=== PATIENT | female | born 1990 | race African-American/Black ===

== ENCOUNTER 2017-02-20 16:54 | Emergency (ER) | payer MEDICAID, OTHER ==
[~2017-02-20] VITALS: Ht 162.6 cm; Wt 72.0 kg
[~2017-02-20 16:54] MED LIST: PREN1CAP20 PO
[2017-02-20 16:56] VITALS: BP 125/67; PULSE 97; RESP 16; TEMP 101; O2SAT 98
[2017-02-20] MEDS ORDERED: ACETAMINOPHEN 325 MG TAB PO ONE (17:45)
--- NOTE | 2017-02-20 18:03 | PD ---
HPI Chief Complaint: Cold / Flu Symptoms Time Seen by Provider: 17:59 Travel History International Travel<30 days: No Contact w/Intl Traveler<30days: No Traveled to known affect area: No History of Present Illness HPI 26-year-old female that presents to the ED for evaluation of fever, body aches, lower abdominal cramping with vaginal discharge. Per patient she was seen about a week ago by an urgent care and she was diagnosed with bacterial vaginosis. Per patient although did was check her urine and diagnosed her with this and she's been taking the Flagyl since. She denies taking anything else. Per patient she did not have any of the fever for body aches until today. She states that she has a slight headache. No neck pain. She does tell me that she has a daughter who is one years old and she sick with cold-like symptoms at home. She denies getting the flu shot this year. She denies any cough or runny nose. No sore throat. Per patient abdominal pain is cramping in nature and is only in the lower abdomen. She denies . Per patient initially she thought she might have a yeast infection and she is OTC meds but he did not improve so that is what she went to see the urgent care. She denies any STD exposure. No allergies to medication. No other medical problems at this time. She states that the pain is 4 out of 10. PFSH Past Medical History Immunizations Current: No ?: Not LMP: JANUARY 2017 : 1 Para: 0 Miscarriage: 0 : 0 Social History Alcohol Use: No Tobacco Use: No Substance Use: No Allergies-Medications (Allergen,Severity, Reaction): Coded Allergies: No Known Allergies (Verified , 05/16/15) Reported Meds & Prescriptions Reported Meds & Active Scripts Active Doxycycline Hyclate DR (Doxycycline Hyclate) 100 Mg Tab 100 Mg PO BID 10 Days Review of Systems Except as stated in HPI: all other systems reviewed are Neg Physical Exam Narrative GENERAL: Well-nourished, well-developed patient in no apparent distress. SKIN: Warm and dry. HEAD: Atraumatic. Normocephalic. EYES: Pupils equal and round reactive to light and accommodation. No scleral icterus. No injection or drainage. ENT: No nasal bleeding or discharge. Mucous membranes pink and moist. TMs are clear with no sign of infection or perforation. No mastoid tenderness. Ear canals are intact bilaterally. No lymphadenopathy. Nostril mucosa is red and moist with clear mucus noted. No sinus tenderness to palpation noted. Tonsils are not enlarged or swollen. No ulvua Deviation. Tongue is midline. NECK: Trachea midline. No JVD. No meningeal signs noted CARDIOVASCULAR: Regular rate and rhythm. RESPIRATORY: No accessory muscle use. Clear to auscultation. Breath sounds equal bilaterally. GASTROINTESTINAL: Abdomen soft, non-tender, nondistended. Hepatic and splenic margins not palpable. Pelvic exam: Done with female nurse present. MUSCULOSKELETAL: Extremities without clubbing, cyanosis, or edema. No obvious deformities. NEUROLOGICAL: Awake and alert. No obvious cranial nerve deficits. Motor grossly within normal limits. Five out of 5 muscle strength in the arms and legs. Normal speech. PSYCHIATRIC: Appropriate mood and affect; insight and judgment normal. Data Data Last Documented VS Vital Signs Date Time Temp Pulse Resp B/P Pulse Ox O2 Delivery O2 Flow Rate FiO2 02/20/17 16:56 101.0 97 16 125/67 98 Orders Complete Blood Count With Diff (02/20/17 17:38) Basic Metabolic Panel (Bmp) (02/20/17 17:38) Blood Culture (02/20/17 17:38) Urinalysis - C+S If Indicated (02/20/17 17:38) Wet Prep Profile (02/20/17 17:38) Gc And Chlamydia Pcr (02/20/17 17:38) Influenzae A/B Antigen (02/20/17 17:38) Chest, Single Ap (02/20/17 17:38) Iv Access Insert/Monitor (02/20/17 17:38) Ed Urine Pregnancytest Poc (02/20/17 17:38) Acetaminophen (Tylenol) (02/20/17 17:45) Urine Culture (02/20/17 17:55) Ceftriaxone Inj (Rocephin Inj) (02/20/17 18:45) Labs Laboratory Tests Test 02/20/17 02/20/17 17:55 18:13 White Blood Count 7.6 TH/MM3 Red Blood Count 4.79 MIL/MM3 Hemoglobin 14.6 GM/DL Hematocrit 43.3 % Mean Corpuscular Volume 90.3 FL Mean Corpuscular Hemoglobin 30.4 PG Mean Corpuscular Hemoglobin 33.7 % Concent Red Cell Distribution Width 13.0 % Platelet Count 302 TH/MM3 Mean Platelet Volume 7.1 FL Neutrophils (%) (Auto) 91.4 % Lymphocytes (%) (Auto) 5.8 % Monocytes (%) (Auto) 2.5 % Eosinophils (%) (Auto) 0.2 % Basophils (%) (Auto) 0.1 % Neutrophils # (Auto) 7.0 TH/MM3 Lymphocytes # (Auto) 0.4 TH/MM3 Monocytes # (Auto) 0.2 TH/MM3 Eosinophils # (Auto) 0.0 TH/MM3 Basophils # (Auto) 0.0 TH/MM3 CBC Comment DIFF FINAL Differential Comment Urine Color YELLOW Urine Turbidity HAZY Urine pH 6.5 Urine Specific [place] 1.030 Urine Protein TRACE mg/dL Urine Glucose (UA) NEG mg/dL Urine Ketones NEG mg/dL Urine Occult Blood NEG Urine Nitrite NEG Urine Bilirubin NEG Urine Urobilinogen 2.0 MG/DL Urine Leukocyte Esterase LARGE Urine WBC 18 /hpf Urine Squamous Epithelial 6 /hpf Cells Urine Mucus FEW /lpf Microscopic Urinalysis Comment CULTURE INDICATED Sodium Level 137 MEQ/L Potassium Level 3.6 MEQ/L Chloride Level 102 MEQ/L Carbon Dioxide Level 27.2 MEQ/L Anion Gap 8 MEQ/L Blood Urea Nitrogen 10 MG/DL Creatinine 0.85 MG/DL Estimat Glomerular Filtration 99 ML/MIN Rate Random Glucose 86 MG/DL Calcium Level 8.9 MG/DL Clue Cells (Wet Prep) NONE SEEN Vaginal Trichomonas (Wet Prep) NONE SEEN Vaginal Yeast (Wet Prep) NONE SEEN MDM Medical Decision Making Medical Screen Exam Complete: Yes Emergency Medical Condition: Yes Medical Record Reviewed: Yes Interpretation(s) CBC & BMP Diagram 02/20/17 17:55 UA shows UTI wet prep negative CXR negative influenza negative Differential Diagnosis PID versus STD versus UTI versus influenza versus abdominal pain versus bacterial vaginosis versus vaginitis Narrative Course 26-year-old female that presents to the ED for evaluation of fever, bodyaches and vaginal discharge. Patient was properly examined and was found to have signs and symptoms of concurrent etiology. Possible viral versus vaginal. Condition at this time is for labs and imaging. Pelvic recommended. Patient agrees to this. Labs and imaging showed possible UTI, was unremarkable. Wet prep was negative. Patient was told results. This time a recommend treating for PID. Case discussed with my attending Dr. Dawn who recommends treating the same. Patient was given a shot here of ceftriaxone and a prescription for doxycycline. Patient was told to refrain from sex for at least 2 weeks and I was use protection. Close follow with PCP. See ED for any worsening symptoms. Patient was told to what to look for in case of emergency to come back. Diagnosis Primary Impression: PID (acute pelvic inflammatory disease) Additional Impression: Vaginal discharge Patient Instructions: General Instructions Additional Instructions: Motrin or Tylenol for pain and fever. Drink plenty of fluids. See ED for any worsening symptoms. Take medication as prescribed. Med/Other Pt SpecificInfo: Prescription(s) given Scripts Doxycycline Hyclate DR 100 Mg [id number] Mg PO BID 10 Days Ref 0 Prov:Michel Dawn MD 02/20/17 Disposition: 01 DISCHARGE HOME Condition: Stable Sami Sosa February 20, 2017 18:03
[2017-02-20 18:18] LABS: BASOPHIL % 0.1 % (0.0-2.0); EOSINOPHIL % 0.2 % (0.0-4.0); HEMATOCRIT 43.3 % (35.0-46.0); HEMO FLAGS DIFF FINAL; LYMPH % 5.8 % (9.0-44.0); LYMPHOCYTE # 0.4 TH/MM3 (1.0-4.8); MEAN CELL VOLUME 90.3 FL (80.0-100.0); MEAN CORPUSCULAR HEMOGLOBIN 30.4 PG (27.0-34.0); MEAN CORPUSCULAR HGB CONC 33.7 % (32.0-36.0); MONO % 2.5 % (0.0-8.0); NEUT % 91.4 % (16.0-70.0); PLATELET COUNT 302 TH/MM3 (150-450); RED BLOOD COUNT 4.79 MIL/MM3 (4.00-5.30); WHITE BLOOD COUNT 7.6 TH/MM3 (4.0-11.0)
--- NOTE | 2017-02-20 18:23 | RADRPT ---
EXAM DATE/TIME: 02/20/2017 18:08 [place] COMPARISON: No previous studies available for comparison. INDICATIONS : Fever, mild chest tightness MEDICAL HISTORY : None. SURGICAL HISTORY : None. denies ENCOUNTER: Initial ACUITY: 2 days PAIN SCORE: 4/10 LOCATION: Bilateral chest FINDINGS: A single view of the chest demonstrates the lungs to be symmetrically aerated without evidence of mas s, infiltrate or effusion. The cardiomediastinal contours are unremarkable. Osseous structures are intact. CONCLUSION: No evidence of acute cardiopulmonary disease. Noe Castro MD on February 20, 2017 at 18:21 Board Certified Radiologist. This report was verified electronically.
[2017-02-20 18:25] LABS: BLOOD, URINE NEG (NEG); COMMENT (UR) CULTURE INDICATED; CULTURE IF INDICATED CULTURE INDICATED; GLUCOSE,URINE NEG (NEG); KETONE, URINE NEG (NEG); MUCUS URINE FEW /lpf (OCC); NITRITE,URINE NEG (NEG); PH, URINE 6.5 (5.0-8.5); SQUAMOUS EPITHELIAL CELL URINE 6 /hpf (0-5); URINE COLOR YELLOW (YELLW/STRAW)
[2017-02-20 18:27] LABS: BICARBONATE 27.2 MEQ/L (21.0-32.0); POTASSIUM 3.6 MEQ/L (3.5-5.1)
[2017-02-20] MEDS ORDERED: cefTRIAXone INJ 250 MG in SODIUM CHLORIDE 0.9% INJ 25 ML IV ONE (18:45)
[2017-02-20] MEDS ORDERED: DOXY1TAB6 PO (18:52)
[2017-02-20] MEDS ORDERED: DOXYCYCLINE HYCLATE 100 MG TAB PO ONE (19:00)
[2017-02-20 20:11] VITALS: BP 122/66; PULSE 87; RESP 18; O2SAT 97
[2017-02-20 20:25] LABS: CHLAMYDIA PCR NOT DETECTED (NOT DETECT); NEISSERIA PCR NOT DETECTED (NOT DETECT)
== END 2017-02-20 20:18 | disposition home or self-care (01) ==
LOC: NEPE 16:54
DX: N73.0 Acute parametritis and pelvic cellulitis (principal)
CPT/HCPCS: 71010; 80048; 81001; 84703; 85025; 87040; 87086; 87210; 87491; 87591; 87804; 96374; 99284; J0696

== ENCOUNTER 2017-03-12 16:13 | Emergency (ER) | payer MEDICAID ==
[~2017-03-12] VITALS: Ht 162.6 cm; Wt 70.0 kg
[~2017-03-12 16:13] MED LIST changes: +DOXY1TAB6 PO; -PREN1CAP20 PO
[2017-03-12 16:15] VITALS: BP 115/79; PULSE 70; RESP 20; TEMP 97.9; O2SAT 100
--- NOTE | 2017-03-12 16:53 | PD ---
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 Patient states she treated herself with [id number] Monistat but was not getting any better. Patient states she's been seen here and at [facility] and has been told that everything came back negative. She states she has even pulled her records to confirm this. Patient states she has gone back and had intercourse with the same partner and nobody knew. She does not utilize condoms prophylaxis. Denies any significant abdominal pain. She states is concerned about the worsening discharge. She has had no fever or chills. No nausea or vomiting. No urinary symptoms. She has no other symptoms to report. PFSH Past Medical History Medical History: Denies Significant Hx Diminished Hearing: No Immunizations Current: No Tetanus Vaccination: Unknown Influenza Vaccination: Yes ?: Not LMP: 03/10/2017 : 2 Para: 1 Miscarriage: 0 : 0 Past Surgical History Section: Yes (x 1 ) Social History Alcohol Use: No Tobacco Use: No Substance Use: No Allergies-Medications (Allergen,Severity, Reaction): Coded Allergies: No Known Allergies (Verified , 03/12/17) Reported Meds & Prescriptions Reported Meds & Active Scripts Active Keflex (Cephalexin) 250 Mg Cap 500 Mg PO Q6H 5 Days Review of Systems Except as stated in HPI: all other systems reviewed are Neg Physical Exam Narrative GENERAL: Well-nourished female patient, in no acute distress SKIN: Focused skin assessment warm/dry. HEAD: Atraumatic. Normocephalic. EYES: Pupils equal and round. No scleral icterus. No injection or drainage. ENT: No nasal bleeding or discharge. Mucous membranes pink and moist. NECK: Trachea midline. No JVD. CARDIOVASCULAR: Regular rate and rhythm. No murmur appreciated. RESPIRATORY: No accessory muscle use. Clear to auscultation. Breath sounds equal bilaterally. GASTROINTESTINAL: Abdomen soft, non-tender, nondistended. Hepatic and splenic margins not palpable. GENITOURINARY: Normal external genitalia without lesions or erythema. Vaginal vault without blood. There is a milky white drainage within the vaginal vault. Cervical os was closed without drainage. No cervical motion tenderness. Uterus nontender and nonenlarged. Bilateral adnexa nontender without masses. MUSCULOSKELETAL: No obvious deformities. No clubbing. No cyanosis. No edema. NEUROLOGICAL: Awake and alert. No obvious cranial nerve deficits. Motor grossly within normal limits. Normal speech. PSYCHIATRIC: Appropriate mood and affect; insight and judgment normal. Data Data Last Documented VS Vital Signs Date Time Temp Pulse Resp B/P Pulse Ox O2 Delivery O2 Flow Rate FiO2 03/12/17 16:15 97.9 70 20 115/79 100 Room Air Orders Urinalysis - C+S If Indicated (03/12/17 16:48) Gc And Chlamydia Pcr (03/12/17 16:48) Wet Prep Profile (03/12/17 16:48) Fluid Culture And Gram Stain (03/12/17 17:43) Urine Culture (03/12/17 17:20) Metronidazole (Flagyl) (03/12/17 18:30) Labs Laboratory Tests Test 03/12/17 03/12/17 17:20 17:43 Urine Color YELLOW Urine Turbidity HAZY Urine pH 8.0 Urine Specific [place] 1.015 Urine Protein NEG mg/dL Urine Glucose (UA) NEG mg/dL Urine Ketones NEG mg/dL Urine Occult Blood NEG Urine Nitrite NEG Urine Bilirubin NEG Urine Urobilinogen LESS THAN 2.0 MG/DL Urine Leukocyte Esterase LARGE Urine RBC 6 /hpf Urine WBC 30 /hpf Urine Squamous Epithelial 5 /hpf Cells Urine Bacteria RARE /hpf Urine Hyaline Casts 1 /lpf Urine Mucus FEW /lpf Microscopic Urinalysis Comment CULTURE INDICATED Clue Cells (Wet Prep) NONE SEEN Vaginal Trichomonas (Wet Prep) PRESENT Vaginal Yeast (Wet Prep) NONE SEEN Chlamydia trachomatis DNA NOT DETECTED (PCR) Neisseria gonorrhoeae DNA NOT DETECTED (PCR) [facility] Medical Decision Making Medical Screen Exam Complete: Yes Emergency Medical Condition: Yes Medical Record Reviewed: Yes Differential Diagnosis STDs versus candidiasis versus UTI Narrative Course 26-year-old female presents to emergency department for evaluation. Patient appears without distress. Patient does have a watery white discharge within the vaginal vault. No CMT. No abdominal pain. Vital signs are stable. Urinalysis is hazy with large leukocyte esterase, 6 rbc, 30 to be DC, rare bacteria, few mucus. Cultures indicated. Wet prep is positive for trichomonas. GC PCR is negative for gonorrhea and chlamydia. Patient is given Flagyl here in the emergency department. She will be discharged home on oral antibiotics for her UTI. He agrees to return immediately with any acute worsening of symptoms. Diagnosis Primary Impression: Infection due to trichomonas vaginalis Additional Impression: UTI (urinary tract infection) Qualified Code: N39.0 - Urinary tract infection without hematuria, site unspecified Referrals: [facility] Primary Care Physician Patient Instructions: General Instructions, Trichomoniasis (ED) Additional Instructions: Follow-up with a jewel grinder Seek primary care evaluation Safe sex utilizing condom prophylaxis is strongly recommended Return immediately to the emergency department with any acute worsening of symptoms Med/Other Pt SpecificInfo: Prescription(s) given Scripts Cephalexin (Keflex)250 Mg [id number] Mg PO Q6H 5 Days Ref 0 Prov:Connie Davidson 03/12/17 Disposition: 01 DISCHARGE HOME Condition: Stable Connie Davidson March 12, 2017 16:53
[2017-03-12 17:42] LABS: BACTERIA, URINE RARE /hpf; BLOOD, URINE NEG (NEG); COMMENT (UR) CULTURE INDICATED; CULTURE IF INDICATED CULTURE INDICATED; GLUCOSE,URINE NEG (NEG); HYALINE CAST, URINE 1 /lpf (RARE); KETONE, URINE NEG (NEG); MUCUS URINE FEW /lpf (OCC); NITRITE,URINE NEG (NEG); SQUAMOUS EPITHELIAL CELL URINE 5 /hpf (0-5); URINE COLOR YELLOW (YELLW/STRAW)
[2017-03-12] MEDS ORDERED: metroNIDAZOLE 500 MG TAB PO ONE (18:30)
[2017-03-12] MEDS ORDERED: CEPH-459 PO (18:46)
[2017-03-12 20:00] LABS: CHLAMYDIA PCR NOT DETECTED (NOT DETECT); NEISSERIA PCR NOT DETECTED (NOT DETECT)
== END 2017-03-12 19:34 | disposition home or self-care (01) ==
LOC: NEPD 16:13
DX: A59.01 Trichomonal vulvovaginitis (principal); N39.0 Urinary tract infection, site not specified; B95.1 Streptococcus, group B, as the cause of diseases classified elsewhere; N73.9 Female pelvic inflammatory disease, unspecified
CPT/HCPCS: 81001; 86403; 87070; 87086; 87205; 87210; 87491; 87591; 99283

== ENCOUNTER 2017-03-27 20:27 | Emergency (ER) | payer MEDICAID ==
[~2017-03-27 20:27] MED LIST changes: +CEPH-459 PO; -DOXY1TAB6 PO
[2017-03-27 20:30] VITALS: BP 126/95; PULSE 88; RESP 16; TEMP 98.7; O2SAT 100
--- NOTE | 2017-03-27 21:16 | PD ---
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 Patient denies any odor, she states the discharge is thick, milky white to yellow. She denies any fevers, nausea, vomiting, abdominal pain. She reports being in the emergency department a few weeks ago with the same symptoms, diagnosed with Trichomonas, urinary tract infection, she completed the course of antibiotics. She states that her sexual partner told her he was treated but she is uncertain if this actually happened. [facility] Past Medical History Medical History: Denies Significant Hx Diminished Hearing: No Immunizations Current: No ?: Not LMP: 03/08/17 : 2 Para: 1 Miscarriage: 0 : 0 Past Surgical History Surgical History: No Previous Surgery Section: Yes (x 1 ) Social History Alcohol Use: No Tobacco Use: No Substance Use: No Allergies-Medications (Allergen,Severity, Reaction): Coded Allergies: No Known Allergies (Verified , 03/27/17) Reported Meds & Prescriptions Reported Meds & Active Scripts Active Zofran Odt (Ondansetron Odt) 4 Mg Tab 4 Mg SL Q6HR PRN Metronidazole 500 Mg Tab 500 Mg PO BID Doxycycline Hyclate 100 Mg Cap 100 Mg PO BID Review of Systems Except as stated in HPI: all other systems reviewed are Neg General / Constitutional: No: Fever, Chills HENT: No: Headaches Cardiovascular: No: Chest Pain or Discomfort Respiratory: No: Shortness of Breath Gastrointestinal: No: Nausea, Vomiting, Abdominal Pain Genitourinary: Positive: Pelvic Pain, Discharge, No: Dysuria, Vaginal Bleeding Physical Exam Narrative GENERAL: Well-nourished, well-developed patient. SKIN: Focused skin assessment warm/dry. HEAD: Normocephalic. EYES: No scleral icterus. No injection or drainage. NECK: Supple, trachea midline. No JVD or lymphadenopathy. CARDIOVASCULAR: Regular rate and rhythm without murmurs, gallops, or rubs. RESPIRATORY: Breath sounds equal bilaterally. No accessory muscle use. GASTROINTESTINAL: Abdomen soft, non-tender, nondistended. MUSCULOSKELETAL: No cyanosis, or edema. BACK: Nontender without obvious deformity. No CVA tenderness. GENITOURINARY: Normal external genitalia without lesions or erythema. Vaginal vault without blood, thick white/yellow drainage Cervical os was closed with white/yellow drainage, as appears erythematous and friable. Positive cervical motion tenderness. Uterus nontender and nonenlarged. Bilateral adnexa nontender without masses. Data Data Last Documented VS Vital Signs Date Time Temp Pulse Resp B/P Pulse Ox O2 Delivery O2 Flow Rate FiO2 03/27/17 20:30 98.7 88 16 126/95 100 Room Air Orders Wet Prep Profile (03/27/17 21:05) Urinalysis - C+S If Indicated (03/27/17 21:05) Hiv Antibody Screen (03/27/17 21:05) Hsv 1,2 Abs Igm (03/27/17 21:05) Doxycycline (Vibratab) (03/27/17 22:15) Metronidazole (Flagyl) (03/27/17 22:15) Ceftriaxone Inj (Rocephin Inj) (03/27/17 22:15) Lidocaine 1% Inj (50 Ml) (Xylocaine 1% I (03/27/17 22:15) Azithromycin (Zithromax) (03/27/17 22:15) Gc And Chlamydia Pcr (03/27/17 22:25) Labs Laboratory Tests Test 03/27/17 03/27/17 21:26 22:00 Urine Color YELLOW Urine Turbidity CLEAR Urine pH 6.5 Urine Specific [place] 1.026 Urine Protein TRACE mg/dL Urine Glucose (UA) NEG mg/dL Urine Ketones NEG mg/dL Urine Occult Blood NEG Urine Nitrite NEG Urine Bilirubin NEG Urine Urobilinogen LESS THAN 2.0 MG/DL Urine Leukocyte Esterase NEG Urine WBC LESS THAN 1 /hpf Urine Squamous Epithelial 5 /hpf Cells Urine Mucus FEW /lpf Microscopic Urinalysis Comment CULT NOT INDICATED Clue Cells (Wet Prep) NONE SEEN Vaginal Trichomonas (Wet Prep) NONE SEEN Vaginal Yeast (Wet Prep) NONE SEEN MDM Medical Decision Making Medical Screen Exam Complete: Yes Emergency Medical Condition: Yes Interpretation(s) Laboratory Tests Test 03/27/17 03/27/17 21:26 22:00 Urine Color YELLOW Urine Turbidity CLEAR Urine pH 6.5 Urine Specific [place] 1.026 Urine Protein TRACE mg/dL Urine Glucose (UA) NEG mg/dL Urine Ketones NEG mg/dL Urine Occult Blood NEG Urine Nitrite NEG Urine Bilirubin NEG Urine Urobilinogen LESS THAN 2.0 MG/DL Urine Leukocyte Esterase NEG Urine WBC LESS THAN 1 /hpf Urine Squamous Epithelial 5 /hpf Cells Urine Mucus FEW /lpf Microscopic Urinalysis Comment CULT NOT INDICATED Clue Cells (Wet Prep) NONE SEEN Vaginal Trichomonas (Wet Prep) NONE SEEN Vaginal Yeast (Wet Prep) NONE SEEN Vital Signs Date Time Temp Pulse Resp B/P Pulse Ox O2 Delivery O2 Flow Rate FiO2 03/27/17 20:30 98.7 88 16 126/95 100 Room Air Differential Diagnosis STD versus UTI versus leukorrhea versus PID versus other Narrative Course Patient's 26-year-old female presenting to the emergency room for evaluation of vaginal discharge and pelvic pain. She was seen and evaluated on March 12, 2017 at that time she was diagnosed with urinary tract infection and Trichomonas. Patient was treated with metronidazole in the emergency department and given a prescription for antibiotics to treat the urinary tract infection. Believed her sexual partner was treated, he told her he had been but she has improved. Her symptoms returned and she presented today for reevaluation. At this time patient will be treated with metronidazole and doxycycline for 14 days, she will be given dose of Rocephin and azithromycin in the emergency department based on physical examination findings. Patient had HIV and herpes serology drawn today. Wet prep was negative. She was advised that she would be notified regarding test results. She was advised to contact medical records if she did not hear from the emergency department within a week. She was encouraged to maintain compliance with antibiotic therapy, she was advised to avoid sexual contact with her partner until he is treated. Patient verbalized understanding of instructions. Patient is stable for discharge. Diagnosis Primary Impression: PID (acute pelvic inflammatory disease) Referrals: [facility]. Patient Instructions: General Instructions, Pelvic Inflammatory Disease (ED) Additional Instructions: Follow-up with a bag maker The full course of antibiotics as prescribed Do not drink alcohol while taking metronidazole Return to emergency department for any new or worsening symptoms Med/Other Pt SpecificInfo: Prescription(s) given Scripts Ondansetron Odt (Zofran Odt)4 Mg Tab4 Mg SL Q6HR PRN (Nausea/Vomiting) #30 TAB Ref 0 Prov:Jackie Kiran 03/27/17 Metronidazole 500 Mg [id number] Mg PO BID #28 TAB Ref 0 Prov:Jackie Kiran 03/27/17 Doxycycline Hyclate 100 Mg [id number] Mg PO BID #28 CAP Ref 0 Prov:Jackie Kiran 03/27/17 Disposition: 01 DISCHARGE HOME Condition: Stable Jackie Kiran Mar 27, 2017 21:16
[2017-03-27 21:49] LABS: BLOOD, URINE NEG (NEG); COMMENT (UR) CULT NOT INDICATED; CULTURE IF INDICATED CULT NOT INDICATED; GLUCOSE,URINE NEG (NEG); KETONE, URINE NEG (NEG); MUCUS URINE FEW /lpf (OCC); NITRITE,URINE NEG (NEG); PH, URINE 6.5 (5.0-8.5); SQUAMOUS EPITHELIAL CELL URINE 5 /hpf (0-5); URINE COLOR YELLOW (YELLW/STRAW)
[2017-03-27] MEDS ORDERED: AZITHROMYCIN 250 MG TAB PO ONE (22:15)
[2017-03-27] MEDS ORDERED: cefTRIAXone 250 MG VIAL IM ONE (22:15)
[2017-03-27] MEDS ORDERED: LIDOCAINE HCL 1% 50 ML VIAL IM ONE (22:15)
[2017-03-27] MEDS ORDERED: metroNIDAZOLE 500 MG TAB PO ONE (22:15)
[2017-03-27] MEDS ORDERED: DOXYCYCLINE HYCLATE 100 MG TAB PO ONE (22:15)
[2017-03-27] MEDS ORDERED: METR500T10 PO (22:43)
[2017-03-27] MEDS ORDERED: ZOFR4TAB3 SL (22:43)
[2017-03-27] MEDS ORDERED: DOXY100C PO (22:43)
[2017-03-28 04:42] LABS: CHLAMYDIA PCR NOT DETECTED (NOT DETECT); NEISSERIA PCR NOT DETECTED (NOT DETECT)
[2017-03-30 21:38] LABS: HSV IGM 1 TITER ND TITER; HSV IGM II TITER ND TITER
[2017-04-02 23:51] LABS: HSV2 IGM IFA NEGATIVE (())
== END 2017-03-27 23:40 | disposition home or self-care (01) ==
LOC: NEPD 20:27
DX: N73.0 Acute parametritis and pelvic cellulitis (principal)
CPT/HCPCS: 81001; 86695; 86696; 86703; 87210; 87491; 87591; 96372; 99284; J0696

== ENCOUNTER 2017-05-09 15:19 | Emergency (ER) | payer MEDICAID ==
[~2017-05-09] VITALS: Ht 162.6 cm; Wt 74.0 kg
[~2017-05-09 15:19] MED LIST changes: -CEPH-459 PO; +DOXY100C PO; +METR500T10 PO; +ZOFR4TAB3 SL
[2017-05-09 15:22] VITALS: BP 118/70; PULSE 69; RESP 17; TEMP 97.6; O2SAT 100
--- NOTE | 2017-05-09 15:27 | PD ---
HPI . suprapubic pain near c section incision Chief Complaint: Abdominal Pain Time Seen by Provider: 15:27 Travel History International Travel<30 days: No Contact w/Intl Traveler<30days: No Traveled to known affect area: No History of Present Illness HPI 26-year-old female with no significant past medical history here with complaints of suprapubic pain near her incision. Patients that she's been experiencing this pain for quite some time intermittently. She states that she thought it was related to her menstrual cycle, but has persisted despite her cycle ending. She says the pain is localized to where her incision scar is from her . It's very sharp and comes intermittently. She admits to increased urinary frequency, but denies any dysuria. On March 27, 2017 she was seen here in the emergency department and had a workup for PID, which was negative. She tells me since then she has seen both her primary care provider and her oil developer. They have not found anything grossly abnormal with her. She did tell me that occasionally she has some nausea, however today that is not present. She denies any vomiting, diarrhea or constipation. PFSH Past Medical History Diminished Hearing: No Immunizations Current: No ?: Not LMP: 05/06/17 : 2 Para: 1 Miscarriage: 0 : 0 Past Surgical History Section: Yes (x 1 ) Social History Alcohol Use: No Tobacco Use: No Substance Use: No Allergies-Medications (Allergen,Severity, Reaction): Coded Allergies: No Known Allergies (Verified , 03/27/17) Reported Meds & Prescriptions Reported Meds & Active Scripts Active No Active Prescriptions or Reported Medications Review of Systems General / Constitutional: No: Fever Eyes: No: Visual changes HENT: No: Headaches Cardiovascular: No: Chest Pain or Discomfort Respiratory: No: Shortness of Breath Gastrointestinal: Positive: Abdominal Pain (suprapubic pain ) Genitourinary: No: Dysuria Musculoskeletal: No: Pain Skin: No Rash Neurologic: No: Weakness Psychiatric: No: Depression Endocrine: No: Polydipsia Hematologic/Lymphatic: No: Easy Bruising Physical Exam Narrative GENERAL: AAO x 3, no acute distress, Well-nourished, well-developed patient. SKIN: Warm and dry. No visible rashes or bruising. HEAD: Normocephalic and atraumatic. EYES: No scleral icterus. No injection or drainage. ENT: No nasal drainage noted. Mucous membranes pink. Airway patent. NECK: Supple, trachea midline. No JVD. CARDIOVASCULAR: Regular rate and rhythm without murmurs, gallops, or rubs. RESPIRATORY: Breath sounds equal bilaterally. No accessory muscle use. No rhonchi or rales. GASTROINTESTINAL: Abdomen soft, non-tender, nondistended. EXTREMITIES: No cyanosis or edema. BACK: No obvious deformity. No CVA tenderness. 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 Data Data Last Documented VS Vital Signs Date Time Temp Pulse Resp B/P Pulse Ox O2 Delivery O2 Flow Rate FiO2 05/09/17 15:22 97.6 69 17 118/70 100 Room Air Orders Urinalysis - C+S If Indicated (05/09/17 15:35) Sodium Chloride 0.9% Flush (Ns Flush) (05/09/17 15:45) Ed Urine Pregnancytest Poc (05/09/17 15:37) Labs Laboratory Tests Test 05/09/17 15:40 Urine Color YELLOW Urine Turbidity CLEAR Urine pH 6.0 Urine Specific [place] 1.027 Urine Protein TRACE mg/dL Urine Glucose (UA) NEG mg/dL Urine Ketones NEG mg/dL Urine Occult Blood NEG Urine Nitrite NEG Urine Bilirubin NEG Urine Urobilinogen LESS THAN 2.0 MG/DL Urine Leukocyte Esterase NEG Urine RBC LESS THAN 1 /hpf Urine WBC 1 /hpf Urine Squamous Epithelial 3 /hpf Cells Urine Bacteria RARE /hpf Urine Mucus FEW /lpf Microscopic Urinalysis Comment CULT NOT INDICATED MDM Medical Decision Making Medical Screen Exam Complete: Yes Emergency Medical Condition: Yes Medical Record Reviewed: Yes Differential Diagnosis post operative pain; adhesions, UTI, less likely acute abdomen Narrative Course 26-year-old female here with complaints of suprapubic pain near her incision. This incision is approximately 2 years old. On examination she does not have any abnormal findings. The exam of the abdomen is benign. I do not suspect acute abdomen or surgical pathology. She does admit to increased urinary frequency, therefore I will check a urinalysis. I have discussed scarring from surgery and adhesions. I do not recommend imaging today. She can f/u with her PCP for further workup and treatment. Prolonged discussion with patient regarding her past workups. I recommend PCP workup. Laboratory Tests Test 05/09/17 15:40 Urine Color YELLOW Urine Turbidity CLEAR Urine pH 6.0 Urine Specific [place] 1.027 Urine Protein TRACE mg/dL Urine Glucose (UA) NEG mg/dL Urine Ketones NEG mg/dL Urine Occult Blood NEG Urine Nitrite NEG Urine Bilirubin NEG Urine Urobilinogen LESS THAN 2.0 MG/DL Urine Leukocyte Esterase NEG Urine RBC LESS THAN 1 /hpf Urine WBC 1 /hpf Urine Squamous Epithelial 3 /hpf Cells Urine Bacteria RARE /hpf Urine Mucus FEW /lpf Microscopic Urinalysis Comment CULT NOT INDICATED No evidence of UTI. I discussed with patient. I believe she has adhesions and scarring in her incision site. I explained this to her. I do recommend outpatient f/u. Patient verbalized understanding of instructions, questions were answered, and thanked me for their care. I advised them if their condition worsens, please return to the nearest emergency room for further care. Diagnosis Primary Impression: Chronic suprapubic pain Patient Instructions: General Instructions Additional Instructions: Please follow-up with your primary care provider a oil developer. Try [id number] Tylenol and Motrin as needed for aches and pains. Med/Other Pt SpecificInfo: No Change to Meds Scripts No Active Prescriptions or Reported Meds Disposition: 01 DISCHARGE HOME Condition: Stable Destiny Stout May 09, 2017 15:27
[2017-05-09] MEDS ORDERED: SODIUM CHLORIDE 0.9% FLUSH 10 ML FLUSH IV FLUSH PRN (15:45)
[2017-05-09 16:31] LABS: BACTERIA, URINE RARE /hpf; BLOOD, URINE NEG (NEG); COMMENT (UR) CULT NOT INDICATED; CULTURE IF INDICATED CULT NOT INDICATED; GLUCOSE,URINE NEG (NEG); KETONE, URINE NEG (NEG); MUCUS URINE FEW /lpf (OCC); NITRITE,URINE NEG (NEG); SQUAMOUS EPITHELIAL CELL URINE 3 /hpf (0-5); URINE COLOR YELLOW (YELLW/STRAW)
== END 2017-05-09 17:01 | disposition home or self-care (01) ==
LOC: NEPD 15:19
DX: R10.30 Lower abdominal pain, unspecified (principal); G89.29 Other chronic pain
CPT/HCPCS: 81001; 84703; 99283

== ENCOUNTER 2017-08-01 14:59 | Emergency (ER) | payer MEDICAID ==
[~2017-08-01] VITALS: Ht 162.6 cm; Wt 79.0 kg
[2017-08-01 15:00] VITALS: BP 125/68; PULSE 95; RESP 15; TEMP 97.6; O2SAT 98
[2017-08-01] MEDS ORDERED: CEPH-460 PO (16:38)
[2017-08-01] MEDS ORDERED: BACT800T5 PO (16:38)
--- NOTE | 2017-08-01 16:38 | PD ---
HPI Chief Complaint: Skin Problem Time Seen by Provider: 16:37 Travel History International Travel<30 days: No Contact w/Intl Traveler<30days: No Traveled to known affect area: No History of Present Illness HPI 27-year-old female presents to emergency department complaining of a boil to her buttocks for the last 1-2 weeks with a few more boils starting in the last couple days. Says the first boil popped open and drained to doing warm compresses. Denies fever, vomiting. Has not taken any medications to alleviate her symptoms. Symptoms are mild in severity. No known aggravating factors. Has no other medical complaints. No known allergies. No other modifying factors or associated signs and symptoms. PFSH Past Medical History Diminished Hearing: No Immunizations Current: No ?: Not LMP: 07/22/17 : 2 Para: 1 Miscarriage: 0 : 0 Past Surgical History Section: Yes (x 1 ) Social History Alcohol Use: No Tobacco Use: No Substance Use: No Allergies-Medications (Allergen,Severity, Reaction): Coded Allergies: No Known Allergies (Verified , 03/27/17) Reported Meds & Prescriptions Reported Meds & Active Scripts Active Bactrim DS (Sulfamethoxazole-Trimethoprim) 800-160 Mg Tab 1 Tab PO BID 10 Days Keflex (Cephalexin) 500 Mg Cap 500 Mg PO Q6H 10 Days Review of Systems Except as stated in HPI: all other systems reviewed are Neg Physical Exam Narrative GENERAL: Well-nourished, well-developed black female patient, in no acute distress; afebrile, nontoxic-appearing SKIN: Warm and dry. Right buttocks with healed/scarred area. Left buttocks with 2 pimple-like bumps that are nonfluctuant and without drainage; without surrounding erythema. HEAD: Atraumatic. Normocephalic. EYES: Pupils equal and round. No scleral icterus. No injection or drainage. ENT: Mucosa pink and moist. Airway patent. NECK: Trachea midline. CARDIOVASCULAR: Regular rate. RESPIRATORY: No accessory muscle use. GASTROINTESTINAL: Rounded. MUSCULOSKELETAL: No obvious deformities. No clubbing. No cyanosis. No edema. NEUROLOGICAL: Awake and alert. Oriented 3. No obvious cranial nerve deficits. Motor grossly within normal limits. Normal speech. PSYCHIATRIC: Appropriate mood and affect; insight and judgment normal. Data Data Last Documented VS Vital Signs Date Time Temp Pulse Resp B/P (MAP) Pulse Ox O2 Delivery O2 Flow Rate FiO2 08/01/17 15:00 97.6 95 15 125/68 (87) 98 Orders Orders Ed Discharge Order (08/01/17 16:42) MDM Medical Decision Making Medical Screen Exam Complete: Yes Emergency Medical Condition: Yes Medical Record Reviewed: Yes Differential Diagnosis Abscess, folliculitis, cellulitis Narrative Course 27-year-old female with an abscess to her right buttocks that has drained on its own and healed. She has 2 pimple-like lesions noted to her left buttocks. There is no surrounding erythema or drainage. Instructed patient to continue warm compresses to the affected areas. I'll give the patient prescriptions for antibiotics for home for possible infection. Keflex and Bactrim prescribed for home. Instructed patient to follow up with primary care provider. Patient verbalizes understanding and agreement with treatment plan. Patient is medically cleared and stable for discharge. Discussed reasons to return to the emergency department. Patient agrees with treatment plan. The patients vital signs are stable and the patient is stable for outpatient follow-up and treatment. Patient discharged home, stable and in no acute distress. Diagnosis Primary Impression: Boil of buttock Referrals: Primary Care Physician Patient Instructions: Abscess (ED), Abscess Follow-up (ED), Abscess Incision and Drainage (DC), General Instructions Additional Instructions: Complete full course of antibiotics Warm compresses to the affected area Keep area clean and dry Ibuprofen or Tylenol as directed and as needed for pain and inflammation Follow-up with primary care provider Return to emergency department immediately with worsening of symptoms Med/Other Pt SpecificInfo: Prescription(s) given Scripts Sulfamethoxazole-Trimethoprim (Bactrim DS) 800-160 Mg Tab 1 TAB PO BID for Infection for 10 Days, #20 TAB 0 Refills Prov: Cami Hebert 08/01/17 Cephalexin (Keflex) 500 Mg Cap 500 MG PO Q6H for Infection for 10 Days, #40 CAP 0 Refills Prov: Cami Hebert 08/01/17 Disposition: 01 DISCHARGE HOME Condition: Stable Cami Hebert Aug 01, 2017 16:38
== END 2017-08-01 16:53 | disposition home or self-care (01) ==
LOC: NEPK 14:59
DX: L02.32 Furuncle of buttock (principal)
CPT/HCPCS: 99284